=== PATIENT | female | born 1985 | race Caucasian/White ===

== ENCOUNTER 2017-08-31 10:30 | Emergency (ER) | payer OTHER | END 2017-08-31 10:52 | disposition left against medical advice (07) | LOC: SCSER 10:30 | DX: Z53.21 Procedure and treatment not carried out due to patient leaving prior to being seen by health care provider (principal) ==

== ENCOUNTER 2017-09-07 11:10 | Emergency (ER) | payer OTHER ==
[2017-09-07] MEDS ORDERED: Ondansetron ODT 4 MG TAB ONE (11:17)
[2017-09-07] MEDS ORDERED: Lidocaine Viscous Sol 2% 15 ml UD Cup ONE (11:17)
[2017-09-07] MEDS ORDERED: Mag-Al Plus 1200 MG/1200 MG/120 MG/30 ML UDCUP ONE (11:17)
[2017-09-07] MEDS ORDERED: Famotidine 20 MG TAB ONE (11:40)
== END 2017-09-07 12:09 | disposition home or self-care (01) ==
LOC: SCSER 11:10
DX: R10.13 Epigastric pain (principal); F41.9 Anxiety disorder, unspecified; F17.210 Nicotine dependence, cigarettes, uncomplicated
CPT/HCPCS: 99406; Q0162

== ENCOUNTER 2017-09-11 19:57 | Emergency (ER) | payer OTHER ==
[2017-09-11] MEDS ORDERED: Acetaminophen 325 MG TAB ONE (20:13)
[2017-09-11 20:29] LABS: #Basophils 0.1 thou/uL (0.0-0.2); #Eosinphils 0.1 thou/uL (0.0-0.7); #Lymphocytes 2.7 thou/uL (1.20-3.40); #Monocytes 0.7 thou/uL (0.11-0.59); #Neutrophils 5.3 thou/uL (1.40-6.50); %Basophils 1.2 % (0.0-1.0); %Eosinophils 1.2 % (0.0-10.0); %Lymphocytes 30.5 % (21.0-51.0); %Monocytes 7.5 % (0.0-10.0); Hematocrit 33.7 % (36.0-47.0); Mean Platelet Volume 6.5 fL (7.4-10.4); Red Blood Cell (RBC) Count 4.28 mill/uL (4.20-5.40); White Blood Cell (WBC) Count 8.9 thou/uL (4.8-10.8)
[2017-09-11 20:31] LABS: Bilirubin Negative (Negative); Blood, Urine Trace (Negative); Glucose, Urine (Dipstick) Negative (Negative); Ketone, Urine Negative (Negative); Nitrite Negative (Negative); Protein, Urine (Dipstick) Negative (Neg-Trace)
[2017-09-11 20:36] LABS: Bacteria/HPF 1+ HPF (None Seen); RBC/HPF 0-3 HPF (0-3); WBC/HPF None Seen HPF (0-3)
[2017-09-11 20:43] LABS: ALT (SGPT) 15 U/L (8-55); AST (SGOT) 16 U/L (5-34); Alkaline Phosphatase 85 U/L (40-150); Anion Gap 14 mmol/L (10-20); BUN (Urea Nitrogen) 18 mg/dL (7.0-18.7); Bilirubin, Total 0.3 mg/dL (0.2-1.2); Calc. Creatinine Clearance 0 mL/min (70-130); Calcium 9.1 mg/dL (7.8-10.44); Carbon Dioxide 25 mmol/L (22-29); Chloride 103 mmol/L (98-107); Estimated GFR-MDRD 80; Globulin 3.1 g/dL (2.4-3.5); Lipase 16 U/L (8-78); Protein, Total 7.3 g/dL (6.0-8.3)
--- NOTE | 2017-09-11 21:30 | ULT ---
ULTRASOUND GALLBLADDER RIGHT UPPER QUADRANT: History: Pain, diarrhea. FINDINGS: Hepatic echotexture is normal. Liver measures 15 cm in length. The pancreas is not well seen. Sonogra phic Narvaez sign is negative and gallbladder is normal, which is contracted. Gallbladder wall thickne ss is less than 3 mm. Common bile duct measures less than 4 mm. Right kidney measures 9.6 x 4.5 x 4.4 cm with a 9 mm cyst. IMPRESSION: Normal exam. POS: [facility]
== END 2017-09-11 21:29 | disposition home or self-care (01) ==
LOC: SCSER 19:57
DX: R10.11 Right upper quadrant pain (principal); F41.9 Anxiety disorder, unspecified; F17.210 Nicotine dependence, cigarettes, uncomplicated
CPT/HCPCS: 76705; 80053; 81003; 81015; 83690; 84703; 85025

== ENCOUNTER 2017-09-21 08:42 | Emergency (ER) | payer OTHER | END 2017-09-21 09:20 | disposition home or self-care (01) | LOC: SCSER 08:42 | DX: R19.7 Diarrhea, unspecified (principal); F41.9 Anxiety disorder, unspecified; Z79.899 Other long term (current) drug therapy | CPT/HCPCS: 99283 ==

== ENCOUNTER 2018-01-22 11:32 | Emergency (ER) | payer OTHER | END 2018-01-22 11:57 | disposition home or self-care (01) | LOC: SCSER 11:32 | DX: J02.9 Acute pharyngitis, unspecified (principal); F41.9 Anxiety disorder, unspecified | CPT/HCPCS: 99282 ==

== ENCOUNTER 2020-09-05 15:41 | Emergency (ER) | payer OTHER, MEDICAID ==
[2020-09-05 21:37] LABS: SARS-CoV-2 MS2 Positive; SARS-CoV-2 N Gene Negative; SARS-CoV-2 S Gene Negative; SARS-CoV-2 by NAA Not Detected (NotDetected); SARS-CoV-2 orf1ab Negative
== END 2020-09-05 16:20 | disposition home or self-care (01) ==
LOC: ERS 15:41
DX: Z20.828 Contact with and (suspected) exposure to other viral communicable diseases (principal); F41.9 Anxiety disorder, unspecified
CPT/HCPCS: 87635; 99283; U0003